=== PATIENT | male | born 1990 | race Caucasian/White ===

== ENCOUNTER 2018-11-09 20:33 | Observation (INO) | payer SELFPAY ==
--- NOTE | 2018-11-09 21:05 | ER Document Report ---
ED General - General Chief Complaint: Overdose Stated Complaint: POSSIBLE OVERDOSE Time Seen by Provider: 11/09/18 20:43 Mode of Arrival: Stretcher Information source: Patient - HPI Notes: Patient is a 28-year-old male who was brought in by EMS after being found unresponsive at home. Per EMS patient was found unresponsive by his father and not breathing. Father then initiated CPR and called 911. Upon arrival the fire department gave a 6 mg of IM Narcan in which the patient continued to have agonal breathing and was unresponsive. EMS initiated IV access and gave 4 mg of IV Narcan at this point patient did become alert and oriented. Initial oxygen saturation for EMS was in the 80s. 6 L nasal cannula was placed on patient. EMS did have an NPA to the left nare which they pulled after patient became alert and oriented. At this time in the emergency department patient is alert and oriented x4. States that he has been under a lot of stress recently with work. He states that earlier he snorted 1 tablet of Percocet. He also had 2 beers at home. Denies any other recreational drug use. Chief complaint of mid sternal chest pain as well as right-sided chest pain. Patient does complain of shortness of breath. States that for a while he has had breathing issues, saw his primary care physician last week and had a "pulmonary function test" in which she was told it was normal. Since receiving CPR patient reports that the shortness of breath has gotten worse. - Related Data Allergies/Adverse Reactions: No Known Allergies Allergy (Unverified 11/09/18 21:00) Past Medical History - General Information source: Patient - Social History Smoking Status: Current Every Day Smoker Cigarette use (# per day): Yes - 1/2 ppd Chew tobacco use (# tins/day): No Frequency of alcohol use: Social Drug Abuse: None Family History: Reviewed & Not Pertinent - Past Medical History Cardiac Medical History: Reports: None Pulmonary Medical History: Reports: None EENT Medical History: Reports: None Neurological Medical History: Reports: None Endocrine Medical History: Reports: None Renal/ Medical History: Reports: None Malignancy Medical History: Reports None GI Medical History: Reports: None Musculoskeletal Medical History: Reports None Skin Medical History: Reports None Psychiatric Medical History: Reports: None Traumatic Medical History: Reports: None Infectious Medical History: Reports: None Surgical Hx: Negative Past Surgical History: Reports: Hx Oral Surgery - Immunizations Hx Diphtheria, Pertussis, Tetanus Vaccination: No Review of Systems - Review of Systems Constitutional: See HPI EENT: See HPI Cardiovascular: See HPI Respiratory: See HPI Gastrointestinal: No symptoms reported Genitourinary: No symptoms reported Musculoskeletal: No symptoms reported Skin: No symptoms reported Hematologic/Lymphatic: No symptoms reported Neurological/Psychological: No symptoms reported Physical Exam - Vital signs Vitals: Resp Pulse Ox 23 H 86 L 11/09/18 20:50 11/09/18 20:50 Interpretation: Tachycardic, Hypoxic, Tachypneic - Notes Notes: GENERAL: Mild distress, nontoxic. HEAD: Atraumatic, normocephalic. EYES: Pupils equal round and constricted, extraocular movements intact, sclera anicteric, conjunctiva are normal. ENT: Dried blood to left nare (pt. did have nasal airway for ems), oropharynx clear without exudates. Moist mucous membranes. NECK: Normal range of motion, supple without lymphadenopathy or JVD. LUNGS: Rales to left middle lobe, tachypneic, clear throughout all other lung [place]. No wheezing or rhonchi. Even chest rise and fall. HEART: Tachycardiac, regular without murmurs, rubs or gallops. ABDOMEN: Soft, nontender, normoactive bowel sounds. No guarding, no rebound. No masses appreciated. EXTREMITIES: Normal range of motion, no pitting or edema. No clubbing or cyanosis. NEUROLOGICAL: Cranial nerves II through XII grossly intact. Normal speech, normal gait. PSYCH: Normal mood, normal affect. SKIN: Warm, Dry, normal turgor, no rashes or lesions noted. No bruising or crepitus noted to chest wall. Midsternal chest wall tenderness with palpation. No bruising noted to chest wall. Course - Re-evaluation Re-evalutation: 11/09/18 20:55 Upon initial assessment patient sitting upright on stretcher, alert and oriented x4. Breathing is unlabored at 26, hypoxic with an oxygen level of 86% on room air as well as tachycardic at 115. She complains of chest pain and shortness of breath. Will initiate orders, continue to monitor and reassess. 11/09/18 22:46 Patient's chest x-ray is concerning for aspiration pneumonia. Upon reevaluation patient is on 2 L nasal cannula at 95%. Patient remains tachypneic with respi ratory rate between 32 and 34. Patient appears uncomfortable and requesting something for his chest pain. 11/09/18 22:[address] Santiago regarding possible admission. Would like to evaluate patient's pulse ox with ambulation. We will have this evaluated by nurse. 11/09/18 23:44 Patient failed ambulation on room air. Nurse reports that when ambulating patient became diaphoretic, short of breath, and his oxygen was 84%. Dr. Santiago made aware and patient admitted to hospital. Updated patient and family. Patient states that somebody had given him a "perc 30," patient states he did this because it has been a rough week at work. Patient states he was not trying to hurt himself. 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 Patient is sitting upright on stretcher, heart rate is 100 oxygen level is 95% on 2 L respiratory rate 21. Patient states feeling better as long as he does not get up and move. Patient has been tolerating ice chips. - Vital Signs Vital signs: Temp Pulse Resp BP Pulse Ox 97.2 F 88 16 122/88 H 99 11/10/18 02:54 11/10/18 03:00 11/10/18 03:00 11/10/18 02:54 11/10/18 03:00 - Laboratory Result Diagrams: 11/09/18 20:55 11/09/18 20:55 Laboratory results interpreted by me: 11/09/18 11/09/18 20:55 20:55 WBC 11.4 H RBC 5.93 H Hgb 17.6 H Hct 51.8 H Glucose 126 H - Diagnostic Test Radiology reviewed: Image reviewed, Reports reviewed Discharge - Discharge Clinical Impression: Hypoxia Aspiration pneumonia Qualifiers: Aspiration pneumonia type: unspecified Laterality: bilateral Lung location: unspecified part of lung Qualified Code(s): J69.0 - Pneumonitis due to inhalation of food and vomit Overdose Qualifiers: Encounter type: initial encounter Injury intent: accidental or unintentional Qualified Code(s): T50.901A - Poisoning by unspecified drugs, medicaments and biological substances, accidental (unintentional), initial encounter Disposition: ADMITTED OBSERVATION Admitting Provider: Jack (Hospitalist) Unit Admitted: Telemetry
[2018-11-09 21:07] LABS: ABSOLUTE BASOPHILS # (AUTO) 0.1 10^3/uL (0.0-0.2); ABSOLUTE EOSINOPHILS # (AUTO) 0.1 10^3/uL (0.0-0.6); ABSOLUTE LYMPHOCYTES (AUTO) 2.3 10^3/uL (0.5-4.7); ABSOLUTE MONOCYTES (AUTO) 0.8 10^3/uL (0.1-1.4); ABSOLUTE NEUT (AUTO) 8.1 10^3/uL (1.7-8.2); BASOPHILS % (AUTO) 0.6 % (0-2); HEMATOCRIT 51.8 % (37.9-51.0); HEMOGLOBIN 17.6 g/dL (13.5-17.0); LYMPHOCYTES % (AUTO) 20.4 % (13-45); MEAN CORPUSCULAR HEMOGLOBIN 29.7 pg (27.0-33.4); MEAN CORPUSCULAR VOLUME 87 fl (80-97); MONOCYTES % (AUTO) 6.6 % (3-13); PLATELET COUNT 274 10^3/uL (150-450); RED BLOOD COUNT 5.93 10^6/uL (4.35-5.55); RED CELL DISTRIBUTION WIDTH 12.7 % (11.5-14.0); SEGMENTED NEUTROPHILS % (AUTO) 71.4 % (42-78); TOTAL CELLS COUNTED % (AUTO) 100 %; WHITE BLOOD COUNT 11.4 10^3/uL (4.0-10.5)
[2018-11-09 21:24] LABS: ALCOHOL 67 mg/dL (NONE DETECTED); ANION GAP 15 (5-19); BLOOD UREA NITROGEN 9 mg/dL (7-20); CALCIUM 9.7 mg/dL (8.4-10.2); CARBON DIOXIDE 22 mmol/L (22-30); CHLORIDE 102 mmol/L (98-107); GLUCOSE 126 mg/dL (75-110); POTASSIUM 3.9 mmol/L (3.6-5.0); SODIUM 138.8 mmol/L (137-145)
[2018-11-09 21:36] LABS: VENOUS BLOOD BASE EXCESS -3.2 mmol/L; VENOUS BLOOD HCO3 22.1 mmol/L (20-32); VENOUS BLOOD PCO2 40.5 mmHg (35-63); VENOUS BLOOD PH 7.35 (7.30-7.42)
--- NOTE | 2018-11-09 22:07 | RADIOLOGY REPORT (SQ) ---
EXAM DESCRIPTION: XR CHEST 1 VIEW COMPLETED DATE/TME: 11/09/2018 20:55 CLINICAL HISTORY: 28 years, Male, CHEST PAIN, SOB COMPARISON: Prior study from 09/25/2018 NUMBER OF VIEWS: One TECHNIQUE: Single frontal view of the chest was obtained portably LIMITATIONS: None. FINDINGS: Cardiac and mediastinal contours are stable in appearance. Patchy opacity is noted about both mid and upper lung zones. No pleural effusion or pneumothorax. IMPRESSION: Patchy opacity about both mid to upper lung zones. Consider atelectasis or pneumonia to include aspiration. copyright 2010 [employer]- All Rights Reserved
--- NOTE | 2018-11-09 22:23 | EKG REPORT ---
SEVERITY:- BORDERLINE ECG - SINUS TACHYCARDIA BORDERLINE PROLONGED QT INTERVAL : Confirmed by: Hernan Bejarano MD 09-Nov-2018 22:22:34
[2018-11-09] MEDS ORDERED: KETOROLAC TROMETHAMINE INJ/PF 30 MG/1 ML SDV IV ONE (22:40)
[2018-11-09] MEDS ORDERED: AMPICILLIN SOD/SULBACTAM 3 GM VIAL IV ONE (22:40)
[2018-11-09] MEDS ORDERED: NORMAL SALINE 1000 ML 1,000 ML IV ONE (23:01)
[2018-11-09] MEDS ORDERED: ACETAMINOPHEN 325 MG TABLET PO PRN (23:32)
[2018-11-10] MEDS: IPRATROPIUM/ALBUTEROL 0.5-2.5 MG/3 ML AMPUL NEB SCH ×2 (03:02→08:02)
--- NOTE | 2018-11-10 05:32 | PDOC H&P ---
History of Present Illness Admission Date/PCP: 11/09/18 23:36 Patient complains of: Overdose History of Present Illness: NAYLA CHANDLER is a 28 year old male with a past medical history of tobacco dependence presents after recreational found by his father unresponsive receiving several minutes of CPR. EMS arrived administering 6 mg of IM Narcan followed by 4 mg of IV Narcan he is awake and alert and responsive and brought to the emergency room for evaluation where he is found to have hypoxia and rhonchi with a chest x-ray suggestive of aspiration. He is started on empiric antibiotics and referred to the hospitalist for admission. Patient admits to intranasal use of Percocet for recreational intention. He denies suicidal or homicidal ideation or devious episode. Past Medical History Cardiac Medical History: Reports: None Pulmonary Medical History: Reports: None EENT Medical History: Reports: None Neurological Medical History: Reports: None Endocrine Medical History: Reports: None Renal/ Medical History: Reports: None Malignancy Medical History: Reports: None GI Medical History: Reports: None Musculoskeltal Medical History: Reports: None Skin Medical History: Reports: None Psychiatric Medical History: Reports: None, Tobacco Dependency Traumatic Medical History: Reports: None Infectious Medical History: Reports: None Past Surgical History Past Surgical History: Reports: None Social History Information Source: Patient Smoking Status: Current Every Day Smoker Cigarettes Packs Per Day: 0.5 Number of Years Smokin Frequency of Alcohol Use: Social Hx Recreational Drug Use: Yes - third time using percocet Drugs: None Hx Prescription Drug Abuse: Yes - Advance Directive Resuscitation Status: Full Code Family History Family History: Hypertension, Malignancy Parental Family History Reviewed: Yes Children Family History Reviewed: Yes Sibling(s) Family History Reviewed.: Yes Medication/Allergy Home Medications: Hydrocodone/Acetaminophen [[place] 5-325 Tablet] 1 each PO Q6 PRN #12 tablet 11/04/13 Allergies/Adverse Reactions: No Known Allergies Allergy (Unverified 11/09/18 21:00) Review of Systems Constitutional: ABSENT: chills, fever(s), headache(s), weight gain, weight loss Eyes: ABSENT: visual disturbances Ears: ABSENT: hearing changes Cardiovascular: ABSENT: chest pain, dyspnea on exertion, edema, orthropnea, palpitations Respiratory: ABSENT: cough, hemoptysis Gastrointestinal: ABSENT: abdominal pain, constipation, diarrhea, hematemesis, hematochezia, nausea, vomiting Genitourinary: ABSENT: dysuria, hematuria Musculoskeletal: ABSENT: joint swelling Integumentary: ABSENT: rash, wounds Neurological: ABSENT: abnormal gait, abnormal speech, confusion, dizziness, focal weakness, syncope Psychiatric: ABSENT: anxiety, depression, homidical ideation, suicidal ideation Endocrine: ABSENT: cold intolerance, heat intolerance, polydipsia, polyuria Hematologic/Lymphatic: ABSENT: easy bleeding, easy bruising Physical Exam Vital Signs: Temp Pulse Resp BP Pulse Ox 97.2 F 88 16 122/88 H 99 11/10/18 02:54 11/10/18 03:00 11/10/18 03:00 11/10/18 02:54 11/10/18 03:00 Intake & Output 11/08/18 11/09/18 11/10/18 11:59 11:59 11:59 Intake Total 1000 Balance 1000 Weight 73.1 kg General appearance: PRESENT: no acute distress, well-developed, well-nourished Head exam: PRESENT: atraumatic, normocephalic Eye exam: PRESENT: conjunctiva pink, EOMI, PERRLA. ABSENT: scleral icterus Ear exam: PRESENT: normal external ear exam Mouth exam: PRESENT: moist, tongue midline Neck exam: ABSENT: carotid bruit, JVD, lymphadenopathy, thyromegaly Respiratory exam: PRESENT: clear to auscultation jere. ABSENT: rales, rhonchi, wheezes Cardiovascular exam: PRESENT: RRR. ABSENT: diastolic murmur, rubs, systolic murmur Pulses: PRESENT: normal dorsalis pedis pul Vascular exam: PRESENT: normal capillary refill GI/Abdominal exam: PRESENT: normal bowel sounds, soft. ABSENT: distended, guarding, mass, organolmegaly, rebound, tenderness Rectal exam: PRESENT: deferred Extremities exam: PRESENT: full ROM. ABSENT: calf tenderness, clubbing, pedal [place] Neurological exam: PRESENT: alert, awake, oriented to person, oriented to place, oriented to time, oriented to situation, CN II-XII grossly intact. ABSENT: motor sensory deficit Psychiatric exam: PRESENT: appropriate affect, normal mood. ABSENT: homicidal ideation, suicidal ideation Skin exam: PRESENT: dry, intact, warm. ABSENT: cyanosis, rash Results Laboratory Results: 11/09/18 20:55 11/09/18 20:55 11/09/18 11/09/18 11/09/18 20:55 20:55 21:25 WBC 11.4 H RBC 5.93 H Hgb 17.6 H Hct 51.8 H MCV 87 MCH 29.7 MCHC 34.0 RDW 12.7 Plt Count 274 Seg Neutrophils % 71.4 Lymphocytes % 20.4 Monocytes % 6.6 Eosinophils % 1.0 Basophils % 0.6 Absolute Neutrophils 8.1 Absolute Lymphocytes 2.3 Absolute Monocytes 0.8 Absolute Eosinophils 0.1 Absolute Basophils 0.1 VBG pH 7.35 VBG pCO2 40.5 VBG HCO3 22.1 VBG Base Excess -3.2 Sodium 138.8 Potassium 3.9 Chloride 102 Carbon Dioxide 22 Anion Gap 15 BUN 9 Creatinine 1.17 Est GFR ( Amer) > 60 Est GFR (Non-Af Amer) > 60 Glucose 126 H Calcium 9.7 Impressions: Chest X-Ray 11/09/18 20:55 IMPRESSION: Patchy opacity about both mid to upper lung zones. Consider atelectasis or pneumonia to include aspiration. copyright 2011 [employer]- All Rights Reserved Assessment and Plan - Diagnosis (1) Aspiration pneumonia Qualifiers: Aspiration pneumonia type: unspecified Laterality: bilateral Lung location: unspecified part of lung Qualified Code(s): J69.0 - Pneumonitis due to inhalation of food and vomit Is this a current diagnosis for this admission?: Yes Plan: Pneumonitis versus aspiration pneumonia, care set deployed. Follow-up CBC and blood culture (2) Hypoxia Is this a current diagnosis for this admission?: Yes Plan: Incentive spirometry, supplemental oxygen (3) Overdose Qualifiers: Encounter type: initial encounter Injury intent: accidental or unintentional Qualified Code(s): T50.901A - Poisoning by unspecified drugs, medicaments and biological substances, accidental (unintentional), initial encounter Is this a current diagnosis for this admission?: Yes Plan: Patient insists use of Percocet was recreational however I am concerned for the quantity of Narcan required to revive him is inconsistent with a single dose of Percocet regardless route of ingestion. Follow-up mental health consult - Time Time Spent with patient: 25-34 minutes - Inpatient Certification Medical Necessity: Need Close Monitoring Due to Risk of Patient Decompensation
[2018-11-10] MEDS ORDERED: HEPARIN SOD (PORCINE) 5,000 UNIT/ML 1 ML SYRINGE SUBCUT SCH (06:00)
[2018-11-10 06:11] LABS: HEMATOCRIT 44.1 % (37.9-51.0); MEAN CORPUSCULAR HEMOGLOBIN 30.7 pg (27.0-33.4); MEAN CORPUSCULAR VOLUME 88 fl (80-97); PLATELET COUNT 187 10^3/uL (150-450); RED BLOOD COUNT 5.03 10^6/uL (4.35-5.55); RED CELL DISTRIBUTION WIDTH 12.6 % (11.5-14.0); WHITE BLOOD COUNT 12.5 10^3/uL (4.0-10.5)
[2018-11-10 06:17] LABS: HEMOGLOBIN 15.4 g/dL (13.5-17.0)
[2018-11-10 06:21] LABS: ANION GAP 9 (5-19); BLOOD UREA NITROGEN 11 mg/dL (7-20); CARBON DIOXIDE 22 mmol/L (22-30); CHLORIDE 105 mmol/L (98-107); GLUCOSE 99 mg/dL (75-110); POTASSIUM 3.9 mmol/L (3.6-5.0); SODIUM 135.8 mmol/L (137-145)
[2018-11-10 06:52] LABS: APPEARANCE,URINE SLIGHTLY-CLOUDY; BILIRUBIN,URINE NEGATIVE (NEGATIVE); COLOR,URINE YELLOW; GLUCOSE, URINE NEGATIVE (NEGATIVE); KETONES,URINE NEGATIVE (NEGATIVE); LEUKOCYTE ESTERASE,URINE NEGATIVE (NEGATIVE); NITRITE,URINE NEGATIVE (NEGATIVE); PROTEIN,URINE 30 mg/dL (NEGATIVE); URINE SPECIFIC GRAVITY 1.021
[2018-11-10 07:11] LABS: URINE BARBITURATES SCREEN NEGATIVE; URINE BENZODIAZEPINES SCREEN NEGATIVE; URINE MARIJUANA (THC) SCREEN NEGATIVE; URINE METHADONE SCREEN NEGATIVE; URINE PHENCYCLIDINE SCREEN NEGATIVE
[2018-11-10 07:25] LABS: URINE COCAINE SCREEN UNCONFIRMED POSITIVE
[2018-11-10 12:09] VITALS: BP 122/88
[2018-11-10] MEDS ORDERED: LIDOCAINE 5% (700 MG) TRANSDERMAL ADH..PATCH TP ONE (13:00)
--- NOTE | 2018-11-10 14:14 | PSYCHOLOGICAL NOTE ---
Psych Note - Psych Note Date seen by psych provider: 11/10/18 Time seen by psych provider: 08:15 - [id number] Psych Note: Reason for Consult: overdose NAYLA CHANDLER is a 28 year old male with a past medical history of tobacco dependence presents after recreational found by his father unresponsive receiving several minutes of CPR. 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 He states he normally uses only Tylenol or ibuprofen and that he is only used what his friend gave 2 times previous. He reports that this time it did look different however did not think anything of it. When asked if patient rarely uses wide he snort the drug rather than taking it as a pill. Patient reports that that was how his friend had used it, "peer pressure I guess... I just did it the way my crystal did it." He states that he will never do this again after what happened. 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 He reports that he is spent all day with his mother and father working and just thought to relax a little bit. Patient denies that he needs any assistance with substance abuse treatment or any history or current thoughts of wanting to hurt himself or others. Patient is alert and orientated to person, place, time and circumstance. Mood is euthymic with congruent affect as evidenced by smiling and engaging with clinician. Patient denies suicidal and homicidal ideation. Delusions are absent behaviors congruent with an intact reality based presentation I organized and linear thought process. Eye contact was well-maintained. Conversational speech is within normal rate, tone and prosody. Intellectual abilities appear to be within the average range. Attention and concentration is good. Insight, judgment, impulse control is fair. 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 He reports accidental overdose after using drugs recreationally. Patient denies substance abuse history stating he is only used 3 times previous. Patient reports that he thought he was using Percocet and identifies using it because he was working all day and was sore. Patient's toxicology does not back up the patient's report of what he used. At this time, patient is either still in severe denial of his use, has no interested sobriety, or truly thought he was using pain medication that a friend gave him when in fact was using stimulants. Patient denies assistance for substance abuse treatment and states that after this event he is never going to use again. Patient is highly encouraged to except substance abuse treatment resources and it is explained that if the patient would like to speak with behavioral health team again he just needs to ask his nurse. At this time the patient does not meet IVC criteria per [place] GS 122C as the patient accidentally overdosed. He denies any history of mental health or thoughts of hurting himself or others. Dr. Rios was consulted and the care management of this patient; attending physicians in agreement with recommendations and dis position.
--- NOTE | 2018-11-10 15:45 | PDOC DISCHARGE SUMMARY ---
General - Admit/Disc Date/PCP Admission Date/Primary Care Provider: 11/09/18 23:36 Discharge Date: 11/10/18 - Discharge Diagnosis (1) Hypoxia Is this a current diagnosis for this admission?: Yes (2) Chest pain Is this a current diagnosis for this admission?: Yes (3) Aspiration pneumonia Is this a current diagnosis for this admission?: Yes (4) Overdose Is this a current diagnosis for this admission?: Yes - Additional Information Resuscitation Status: Full Code Discharge Diet: As Tolerated Discharge Activity: Activity As Tolerated Home Medications: No Home Medications 11/10/18 History of Present Illness History of Present Illness: NAYLA CHANDLER is a 28 year old male with a past medical history of tobacco dependence presents after recreational found by his father unresponsive receiving several minutes of CPR. EMS arrived administering 6 mg of IM Narcan followed by 4 mg of IV Narcan he is awake and alert and responsive and brought to the emergency room for evaluation where he is found to have hypoxia and rho nchi with a chest x-ray suggestive of aspiration. He is started on empiric antibiotics and referred to the hospitalist for admission. Patient admits to intranasal use of Percocet for recreational intention. He denies suicidal or homicidal ideation or devious episode. Hospital Course Hospital Course: (1) Hypoxia Most likely to drug overdose. Resolved. SPO2 of 86-91 on admission. 11/09/2018. VBG pH 7.35 PCO2 40.5 Started on incentive spirometry, supplemental oxygen (2) Aspiration pneumonia Most likely pneumonitis. Leukocytosis resolved. Denied any shortness of breath of the cough. Started on empiric antibiotics. (3) Overdose UDS positive for cocaine. Psych was consulted and patient was cleared for discharge at this point. Please refer to psych note. Patient insisted of using only Percocet but UDS is positive for cocaine and EtOH (67), negative for opiates. Amphetamines pending at the time of discharge. (4) Chest Pain Musculoskeletal caused by CPR that patient received at home.. Tender to palpation over over her sternum. Lidocaine patch provided. Physical Exam Vital Signs: Temp Pulse Resp BP Pulse Ox 98.0 F 94 16 122/88 H 100 11/10/18 12:08 11/10/18 12:08 11/10/18 12:08 11/10/18 12:08 11/10/18 12:08 Intake & Output 11/09/18 11/10/18 11/11/18 06:59 06:59 06:59 Intake Total 1000 218 Output Total 0 Balance 1000 218 Weight 73.1 kg General appearance: PRESENT: no acute distress, well-developed, well-nourished Head exam: PRESENT: atraumatic, normocephalic Eye exam: PRESENT: conjunctiva pink, EOMI, PERRLA. ABSENT: scleral icterus Ear exam: PRESENT: normal external ear exam Mouth exam: PRESENT: moist, tongue midline Neck exam: ABSENT: carotid bruit, JVD, lymphadenopathy, thyromegaly Respiratory exam: PRESENT: clear to auscultation jere, other - TTP anterior chest.. ABSENT: rales, rhonchi, wheezes Cardiovascular exam: PRESENT: RRR. ABSENT: diastolic murmur, rubs, systolic murmur Pulses: PRESENT: normal dorsalis pedis pul Vascular exam: PRESENT: normal capillary refill GI/Abdominal exam: PRESENT: normal bowel sounds, soft. ABSENT: distended, guarding, mass, organolmegaly, rebound, tenderness Rectal exam: PRESENT: deferred Extremities exam: PRESENT: full ROM. ABSENT: calf tenderness, clubbing, pedal edema Neurological exam: PRESENT: alert, awake, oriented to person, oriented to place, oriented to time, oriented to situation, CN II-XII grossly intact. ABSENT: motor sensory deficit Psychiatric exam: PRESENT: appropriate affect, normal mood. ABSENT: homicidal ideation, suicidal ideation Skin exam: PRESENT: dry, intact, warm. ABSENT: cyanosis, rash Results Laboratory Results: 11/10/18 05:30 11/10/18 05:30 11/09/18 11/09/18 11/09/18 20:55 20:55 21:25 WBC 11.4 H RBC 5.93 H Hgb 17.6 H Hct 51.8 H MCV 87 MCH 29.7 MCHC 34.0 RDW 12.7 Plt Count 274 Seg Neutrophils % 71.4 Lymphocytes % 20.4 Monocytes % 6.6 Eosinophils % 1.0 Basophils % 0.6 Absolute Neutrophils 8.1 Absolute Lymphocytes 2.3 Absolute Monocytes 0.8 Absolute Eosinophils 0.1 Absolute Basophils 0.1 VBG pH 7.35 VBG pCO2 40.5 VBG HCO3 22.1 VBG Base Excess -3.2 Sodium 138.8 Potassium 3.9 Chloride 102 Carbon Dioxide 22 Anion Gap 15 BUN 9 Creatinine 1.17 Est GFR ( Amer) > 60 Est GFR (Non-Af Amer) > 60 Glucose 126 H Calcium 9.7 Urine Color Urine Appearance Urine pH Ur Specific [place] Urine Protein Urine Glucose (UA) Urine Ketones Urine Blood Urine Nitrite Ur Leukocyte Esterase Urine WBC (Auto) Urine RBC (Auto) 11/10/18 11/10/18 11/10/18 05:30 05:30 06:35 WBC 12.5 H RBC 5.03 Hgb 15.4 D Hct 44.1 MCV 88 MCH 30.7 MCHC 35.0 RDW 12.6 Plt Count 187 Seg Neutrophils % Lymphocytes % Monocytes % Eosinophils % Basophils % Absolute Neutrophils Absolute Lymphocytes Absolute Monocytes Absolute Eosinophils Absolute Basophils VBG pH VBG pCO2 VBG HCO3 VBG Base Excess Sodium 135.8 L Potassium 3.9 Chloride 105 Carbon Dioxide 22 Anion Gap 9 BUN 11 Creatinine 0.86 Est GFR ( Amer) > 60 Est GFR (Non-Af Amer) > 60 Glucose 99 Calcium 9.0 Urine Color YELLOW Urine Appearance SLIGHTLY-CLOUDY Urine pH 6.0 Ur Specific [place] 1.021 Urine Protein 30 H Urine Glucose (UA) NEGATIVE Urine Ketones NEGATIVE Urine Blood NEGATIVE Urine Nitrite NEGATIVE Ur Leukocyte Esterase NEGATIVE Urine WBC (Auto) 4 Urine RBC (Auto) 2 Impressions: Chest X-Ray 11/09/18 20:55 IMPRESSION: Patchy opacity about both mid to upper lung zones. Consider atelectasis or pneumonia to include aspiration. copyright 2010 [employer]- All Rights Reserved Qualifiers - * PATIENT BEING DISCHARGED WITH ANY OF THE FOLLOWING DIAGNOSIS: No Acute Heart Failure Is this a Heart Failure Patient?: No
== END 2018-11-10 13:20 | disposition home or self-care (01) ==
LOC: ER 20:33 → EH 23:36 → 3W 11-10 02:35
PROVIDERS: ADMIT Internal Medicine; ATTEND Internal Medicine
DX: T40.5X1A Poisoning by cocaine, accidental (unintentional), initial encounter (principal); R09.02 Hypoxemia; J69.0 Pneumonitis due to inhalation of food and vomit; R07.9 Chest pain, unspecified; R06.02 Shortness of breath; F17.210 Nicotine dependence, cigarettes, uncomplicated; Z56.6 Other physical and mental strain related to work; Z82.49 Family history of ischemic heart disease and other diseases of the circulatory system
CPT/HCPCS: 99285; 96361; 96375; 96365; 36415 ×2; 80307 ×3; 85025; 85027; 80048 ×2; 81001; 80353; 82803; 71045; 93005; 94799; 93010; 94640; G0378 ×2; G0480 ×2; J1644; J0295; J1885; J3490; J7030; J7620

== ENCOUNTER 2019-06-03 21:17 | Emergency (ER) | payer OTHER ==
[2019-06-03] MEDS ORDERED: ONDANSETRON HCL INJ/PF 4 MG/2 ML SDV IV ONE (22:28)
[2019-06-03 22:35] LABS: ABSOLUTE LYMPHOCYTES (AUTO) 2.7 10^3/uL (0.5-4.7); ABSOLUTE MONOCYTES (AUTO) 0.5 10^3/uL (0.1-1.4); BASOPHILS % (AUTO) 0.4 % (0-2); EOSINOPHILS % (AUTO) 0.3 % (0-6); HEMATOCRIT 47.6 % (37.9-51.0); HEMOGLOBIN 16.1 g/dL (13.5-17.0); LYMPHOCYTES % (AUTO) 23.7 % (13-45); MEAN CORPUSCULAR HEMOGLOBIN 29.9 pg (27.0-33.4); MEAN CORPUSCULAR HGB CONC 33.8 g/dL (32.0-36.0); MEAN CORPUSCULAR VOLUME 88 fl (80-97); MONOCYTES % (AUTO) 4.1 % (3-13); PLATELET COUNT 223 10^3/uL (150-450); RED BLOOD COUNT 5.39 10^6/uL (4.35-5.55); RED CELL DISTRIBUTION WIDTH 13.1 % (11.5-14.0); SEGMENTED NEUTROPHILS % (AUTO) 71.5 % (42-78); TOTAL CELLS COUNTED % (AUTO) 100 %; WHITE BLOOD COUNT 11.2 10^3/uL (4.0-10.5)
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
[2019-06-03] MEDS: MORPHINE SULFATE 10 MG/ML INJ IV PRN (22:41)
[2019-06-03 22:44] LABS: ALBUMIN 4.4 g/dL (3.5-5.0); ALCOHOL 220 mg/dL (NONE DETECTED); ALKALINE PHOSPHATASE 60 U/L (38-126); ANION GAP 14 (5-19); ASPARTATE AMINO TRANSFERASE 44 U/L (17-59); BILIRUBIN,DIRECT 0.2 mg/dL (0.0-0.4); BILIRUBIN,TOTAL 0.5 mg/dL (0.2-1.3); BLOOD UREA NITROGEN 9 mg/dL (7-20); CALCIUM 9.2 mg/dL (8.4-10.2); CARBON DIOXIDE 24 mmol/L (22-30); CHLORIDE 110 mmol/L (98-107); GLUCOSE 89 mg/dL (75-110); POTASSIUM 3.9 mmol/L (3.6-5.0); TOTAL PROTEIN 7.4 g/dL (6.3-8.2)
[2019-06-03 23:18] LABS: INTERNATIONAL RATION (INR) 1.06; PROTHROMBIN TIME 13.8 SEC (11.4-15.4)
[2019-06-03 23:19] LABS: PARTIAL THROMBOPLASTIN TIME 27.2 SEC (23.5-35.8)
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
[2019-06-04] MEDS: NORMAL SALINE 1000 ML 1,000 ML IV PRN ×2 (00:29→02:02)
[2019-06-04] MEDS ORDERED: KETOROLAC TROMETHAMINE INJ/PF 30 MG/1 ML SDV IV ONE (00:35)
[2019-06-04] MEDS: MORPHINE SULFATE 10 MG/ML INJ IV PRN (01:13)
[2019-06-04 02:04] LABS: APPEARANCE,URINE CLEAR; BILIRUBIN,URINE NEGATIVE (NEGATIVE); COLOR,URINE YELLOW; GLUCOSE, URINE NEGATIVE (NEGATIVE); KETONES,URINE NEGATIVE (NEGATIVE); LEUKOCYTE ESTERASE,URINE NEGATIVE (NEGATIVE); NITRITE,URINE NEGATIVE (NEGATIVE); PROTEIN,URINE 30 mg/dL (NEGATIVE); URINE SPECIFIC GRAVITY 1.015; UROBILINOGEN,URINE NEGATIVE mg/dL (<2.0)
[2019-06-04 02:18] LABS: URINE AMPHETAMINES SCREEN NEGATIVE; URINE BARBITURATES SCREEN NEGATIVE; URINE BENZODIAZEPINES SCREEN NEGATIVE; URINE MARIJUANA (THC) SCREEN NEGATIVE; URINE METHADONE SCREEN NEGATIVE; URINE PHENCYCLIDINE SCREEN NEGATIVE
[2019-06-04 02:19] LABS: URINE COCAINE SCREEN UNCONFIRMED POSITIVE
[2019-06-04 02:47] VITALS: BP 148/95
--- NOTE | 2019-06-04 07:37 | EKG REPORT ---
SEVERITY:- BORDERLINE ECG - SINUS TACHYCARDIA MILD NONSPECIFIC ST-T CHANGES INFERIOR LEADS : Confirmed by: Hernan Bejarano MD 04-Jun-2019 07:37:16
== END 2019-06-04 02:53 | disposition home or self-care (01) ==
LOC: ER 21:17
DX: S20.312A Abrasion of left front wall of thorax, initial encounter (principal); T14.8XXA Other injury of unspecified body region, initial encounter; M25.572 Pain in left ankle and joints of left foot; M79.601 Pain in right arm; V49.40XA Driver injured in collision with unspecified motor vehicles in traffic accident, initial encounter; F10.129 Alcohol abuse with intoxication, unspecified; F17.200 Nicotine dependence, unspecified, uncomplicated; R47.81 Slurred speech; R23.2 Flushing; R22.0 Localized swelling, mass and lump, head; R10.812 Left upper quadrant abdominal tenderness; R00.0 Tachycardia, unspecified; K76.0 Fatty (change of) liver, not elsewhere classified
CPT/HCPCS: 36415; 80307; 85025; 85610; 85730; 80053; 73610; 72050; 73090; 73130; 73060; 70450; 71260; 74177; J2270; J2405; 81001; 93005; 93010; 96361; 96374; 96375; 99284; J1885; J7030